=== PATIENT | female | born 1970 | race Caucasian/White ===

== ENCOUNTER 2021-04-01 18:16 | Emergency (ER) | payer OTHER ==
[~2021-04-01] VITALS: Ht 162.6 cm; Wt 108.9 kg
[~2021-04-01 18:16] MED LIST: BUPR75; METF500 PO
[2021-04-01 19:03] LABS: BASOPHILS ABSOLUTE AUTO 0.03 K/mm3 (0.00-0.23); BASOPHILS PERCENT AUTO 0 % (0-2); EOSINOPHILS ABSOLUTE AUTO 0.19 K/mm3 (0.00-0.68); EOSINOPHILS PERCENT AUTO 3 % (0-6); Hematocrit 38.5 % (33.0-51.0); Hemoglobin 13.2 g/dL (11.5-16.0); IMMATURE GRAN ABSOLUTE AUTO 0.03 K/mm3 (0.00-0.10); IMMATURE GRAN PERCENT AUTO 0 % (0-1); LYMPHOCYTES PERCENT AUTO 43 % (21-46); MONOCYTES ABSOLUTE AUTO 0.48 K/mm3 (0.16-1.47); MONOCYTES PERCENT AUTO 6 % (4-13); Mean Corpuscular HGB 30.3 pg (26.0-34.0); Mean Corpuscular HGB Conc 34.3 g/dL (31.5-36.5); Mean Corpuscular Volume 89 fL (80-100); Mean Platelet Volume 9.2 fL (9.1-12.4); NEUTROPHILS ABSOLUTE AUTO 3.62 K/mm3 (1.96-9.15); NEUTROPHILS PERCENT AUTO 47 % (41-73); Platelet Count 304 K/mm3 (150-400); RDW Coefficient Variation 13.3 % (11.7-14.2); RDW Standard Deviation 43.3 fL (35.1-46.3); Red Blood Cell Count 4.35 M/mm3 (3.80-5.20); White Blood Cell Count 7.65 K/mm3 (4.00-11.30)
[2021-04-01 19:16] LABS: Alanine Aminotransfer (ALT/SGP 40 U/L (12-78); Albumin, Blood 3.7 g/dL (3.4-5.0); Alk Phos 68 U/L (50-136); Anion Gap 7 mmol/L (6-16); Aspartate Aminotrans (AST/SGOT 22 U/L (12-37); Bilirubin, Total 0.3 mg/dL (0.1-1.0); Blood Urea Nitrogen 10 mg/dL (8-24); Bun/Creatinine Ratio 12.3 (12.0-20.0); CO2, Blood 25 mmol/L (21-32); Chloride, Blood 105 mmol/L (98-108); Creatinine, Blood 0.82 mg/dL (0.40-1.00); Globulin, Blood 3.6 g/dL (2.2-4.0); Glomerular Filtration Rate >60 (60-); Glucose, Blood 154 mg/dL (70-99); Potassium, Blood 3.7 mmol/L (3.5-5.5); Sodium, Blood 137 mmol/L (136-145); Total Protein, Blood 7.3 g/dL (6.4-8.2)
[2021-04-01] MEDS ORDERED: METF500 PO (19:21)
[2021-04-01] MEDS ORDERED: Cymbalta20 MG PO (19:21)
[2021-04-01] MEDS ORDERED: MELOXICAM5 MG PO (19:21)
== END 2021-04-01 21:25 | disposition home or self-care (01) ==
LOC: ER 18:16
PROVIDERS: Student in an Organized Health Care Education/Training Program
DX: R20.2 Paresthesia of skin (principal); E11.9 Type 2 diabetes mellitus without complications; Z87.891 Personal history of nicotine dependence; Z79.84 Long term (current) use of oral hypoglycemic drugs; Z79.899 Other long term (current) drug therapy; Z88.5 Allergy status to narcotic agent; Z88.8 Allergy status to other drugs, medicaments and biological substances; Z86.16 Personal history of COVID-19
CPT/HCPCS: 36415; 70450; 80053; 85025; 93005; 93010; 96372; 99285-25

== ENCOUNTER 2022-08-26 05:48 | Day surgery (SDC) | payer OTHER ==
[~2022-08-26] VITALS: Ht 160 cm; Wt 106.0 kg
[~2022-08-26 05:48] MED LIST changes: +BUPR150ER PO; -BUPR75; +Bactrim Ds Tab1 EACH PO; +Cymbalta20 MG PO; +LORAZEPAM0.5 MG PO; +MELOXICAM5 MG PO; +OMEP20ER PO; +OXYC5 PO; +PREG100 PO; +PROBIOTIC1 EA13 PO; +PSYLLIUM FIBER0.4 GM; +VICTOZA 2-0.6 MG/0.1 SC; +VITAMIN D310 MC4 PO; +[UNRECOGNIZED DRUG - OTHER]
[2022-08-26] MEDS ORDERED: GABA300 PO (06:35)
[2022-08-26] MEDS ORDERED: Crestor20 MG PO (06:35)
[2022-08-26] MEDS ORDERED: OMEP20ER PO (06:36)
--- NOTE | 2022-08-26 07:47 | NUR ---
Ambulatory in Day Surgery History, Chart, Medications and Allergies reviewed before start of procedure.Pre-Op teaching done. Pt verbalizes understanding. Patient confirms NPO status and agrees with scheduled surgery.
--- NOTE | 2022-08-26 19:15 | NUR ---
ADMIT NOTE PATIENT NEW ADMIT TO UNIT POST OP DAY 0 HERNIA REPAIR WITH MESH PLACEMENT AND SCAR REVISION WITH DR FARLEY. ALERT AND ORIENTED AND MILDLY GROGGY. SEVERE ABD PAIN 8/10, MANAGED WITH IV DILAUDID. POST OP VSS. TOLERATING WATER, JELLO, AND CRACKERS. REPORTS MILD NAUSEA. WELDON DC'D ON ARRIVAL PER ORDERS. CHARTED 1200 CLEAR YELLOW URINE OUTPUT. 2L O2 VIA NC. IV FLUID RUNNING. RESTING IN BED AT THIS TIME. ABD INCISIONS LAP SITES X 4 AND LOWER MIDLINE WITH DERMABOND. C/D/I. REPORT GIVEN TO LANDSCAPE AND YARDWORK LABORER RN.
--- NOTE | 2022-08-27 06:00 | NUR ---
SUMMARY PT AMBULATORY [id number] ASSIST.VOIDING WITHOUT DIFF.REPORTS PAIN CONTROLLED WITH PO PAIN MEDS.TOLERATING PO AFTER BRIEF NAUSEA.
--- NOTE | 2022-08-27 17:41 | NUR ---
BREN FULL LIQUID DIET WITHOUT NAUSEA. UP IN ROOM AND AMBULATED IN HALLWAY WITH MINIMAL ASSIST. PT REPORTS ABD BINDER HAS HELPED DECREASE ABD PAIN. PT SITTING IN RECLINER AND USING HOME COMPUTER THIS AFTERNOON. MEDICATED FOR PAIN AND REPORTS PAIN RELIEF IS ADEQUATE AND WHAT SHE WOULD EXPECT AT THIS POINT
[2022-08-27 21:39] LABS: Source, Urine Clean Catch
[2022-08-27 21:44] LABS: Appearance, Urine Hazy (Clear); Bilirubin, Urine Neg (Neg); Blood, Urine 2+ (Neg); Glucose Qualitative, Urine Neg (Neg); Ketones, Urine Neg (Neg); Leukocyte Esterase, Urine 3+ (Neg); Nitrite, Urine Pos (Neg); Protein, Urine 1+ (Neg); Specific Gravity, Urine 1.005 (1.003-1.022); Urobilinogen, Urine NORM (Normal)
[2022-08-27 22:33] LABS: Color, Urine Pale Yellow (P-Yellow)
[2022-08-27 22:35] LABS: Bacteria Many /hpf; Squamous Epithelial Cells Rare /hpf (Few); White Blood Cells, Urine 50-100 /hpf (0-5)
--- NOTE | 2022-08-28 06:37 | NUR ---
Patient independent in room, scant sang drainage from abd incision. PRN pain meds given ATC. Drinking and eating well. No acute safety concerns at this time.
--- NOTE | 2022-08-28 07:29 | NUR ---
08/28/22 0729 Apolonia Mcbride LATE ENTRY: FOLLOWING PROCEDURE, MULTIPLE SMALL SKIN TEARS EVIDENT ON LOWER ABDOMEN.
[2022-08-28] MEDS ORDERED: ACET500 PO (10:41)
[2022-08-28] MEDS ORDERED: IBUP400 PO (10:42)
[2022-08-28] MEDS ORDERED: OXYC5 PO (10:42)
[2022-08-28] MEDS ORDERED: CEPH500 PO (10:42)
--- NOTE | 2022-08-28 12:56 | NUR ---
DISCHARGE: INCISIONS WNL, PAIN MANAGED. PT A/O, VSS. REFUSED NEED FOR INSULIN THIS AFTERNOON. DC PACKET PRINTED AND PT EDUCATED. IV DC'D WNL, TIP INTACT. LEFT UNIT VIA WHEELCHAIR AT ABOUT 1145 WITH MIN CASTRO
== END 2022-08-28 12:15 | disposition home or self-care (01) ==
LOC: ORSCMMR 05:48 → ORD 07:30 → ORSCMMR 07:30 → SURS 15:50 → ORSCMMR 08-28 12:15
PROVIDERS: Surgery
PROC: 0WUF4JZ Supplement Abdominal Wall with Synthetic Substitute, Percutaneous Endoscopic Approach (ICD-10-PCS; principal; 2022-08-26 07:30)
PROC: 3E0M45Z Introduction of Adhesion Barrier into Peritoneal Cavity, Percutaneous Endoscopic Approach (ICD-10-PCS; principal; 2022-08-26 07:30)
PROC: 0HB7XZZ Excision of Abdomen Skin, External Approach (ICD-10-PCS; principal; 2022-08-26 07:30)
PROC: 8E0W4CZ Robotic Assisted Procedure of Trunk Region, Percutaneous Endoscopic Approach (ICD-10-PCS; principal; 2022-08-26 07:30)
DX: K43.0 Incisional hernia with obstruction, without gangrene (principal); L91.0 Hypertrophic scar; K21.9 Gastro-esophageal reflux disease without esophagitis; E11.9 Type 2 diabetes mellitus without complications; Z23 Encounter for immunization; Z79.899 Other long term (current) drug therapy; Z86.73 Personal history of transient ischemic attack (TIA), and cerebral infarction without residual deficits
CPT/HCPCS: 49594; 11400; S2900; 81001; 82947; 87077; 87086; 87186; 90686; 94760; A9270; C1781; J0690; J1100; J1170; J1650; J1885; J2250; J2370; J2405; J2704; J2765; J2795; J3010; J7120

== ENCOUNTER 2022-10-07 11:20 | Emergency (ER) | payer OTHER ==
[~2022-10-07] VITALS: Ht 160 cm; Wt 102.1 kg
[~2022-10-07 11:20] MED LIST changes: +ACET500 PO; +CEPH500 PO; +Crestor20 MG PO; +GABA300 PO; +IBUP400 PO
[2022-10-07 11:51] LABS: BASOPHILS ABSOLUTE AUTO 0.04 K/mm3 (0.00-0.23); BASOPHILS PERCENT AUTO 1 % (0-2); EOSINOPHILS ABSOLUTE AUTO 0.29 K/mm3 (0.00-0.68); EOSINOPHILS PERCENT AUTO 3 % (0-6); Hematocrit 38.4 % (33.0-51.0); IMMATURE GRAN ABSOLUTE AUTO 0.03 K/mm3 (0.00-0.10); IMMATURE GRAN PERCENT AUTO 0 % (0-1); LYMPHOCYTES ABSOLUTE AUTO 3.04 K/mm3 (0.84-5.20); LYMPHOCYTES PERCENT AUTO 35 % (21-46); MONOCYTES PERCENT AUTO 7 % (4-13); Mean Corpuscular HGB 29.7 pg (26.0-34.0); Mean Corpuscular HGB Conc 33.9 g/dL (31.5-36.5); Mean Corpuscular Volume 88 fL (80-100); Mean Platelet Volume 8.8 fL (9.1-12.4); NEUTROPHILS ABSOLUTE AUTO 4.79 K/mm3 (1.96-9.15); NEUTROPHILS PERCENT AUTO 55 % (41-73); Platelet Count 319 K/mm3 (150-400); Red Blood Cell Count 4.37 M/mm3 (3.80-5.20); White Blood Cell Count 8.79 K/mm3 (4.00-11.30)
[2022-10-07 12:11] LABS: Albumin, Blood 3.6 g/dL (3.4-5.0); Albumin/Globulin Ratio 0.9 (0.8-1.8); Bilirubin, Total 0.3 mg/dL (0.1-1.0); Calcium, Blood 9.3 mg/dL (8.5-10.1); Creatinine, Blood 0.69 mg/dL (0.40-1.00); Globulin, Blood 3.8 g/dL (2.2-4.0); Total Protein, Blood 7.4 g/dL (6.4-8.2)
[2022-10-07 14:18] LABS: Source, Urine Voided
[2022-10-07 14:23] LABS: Appearance, Urine Clear (Clear); Bilirubin, Urine Neg (Neg); Blood, Urine Neg (Neg); Color, Urine Yellow (P-Yellow); Glucose Qualitative, Urine Neg (Neg); Ketones, Urine Neg (Neg); Leukocyte Esterase, Urine 1+ (Neg); Nitrite, Urine Neg (Neg); Protein, Urine 1+ (Neg); Specific Gravity, Urine 1.005 (1.003-1.022); Urobilinogen, Urine NORM (Normal)
[2022-10-07 14:37] LABS: Bacteria Few /hpf; Squamous Epithelial Cells Few /hpf (Few)
[2022-10-07 15:57] LABS: International Normalized Ratio 1.03; Prothrombin Time Results 10.8 Sec (9.7-11.5)
[2022-10-08] MEDS ORDERED: Percocet 5-3251 EACH PO (22:01)
[2022-10-08] MEDS ORDERED: DOC250 PO (22:02)
== END 2022-10-07 16:30 | disposition home or self-care (01) ==
LOC: ER 11:20
PROVIDERS: Emergency Medicine; Physician Assistant
DX: K91.873 Postprocedural seroma of a digestive system organ or structure following other procedure (principal); E11.9 Type 2 diabetes mellitus without complications; Z88.5 Allergy status to narcotic agent; Z79.899 Other long term (current) drug therapy; Z79.84 Long term (current) use of oral hypoglycemic drugs; Z87.891 Personal history of nicotine dependence
CPT/HCPCS: 36415; 74177; 80053; 81001; 85025; 85610; 85730; 87077; 87086; 87186; 96374-59; 96375; 96376; 99284-25; J1170; J2405; Q9967

== ENCOUNTER 2022-10-08 12:56 | Day surgery (SDC) | payer OTHER ==
[2022-10-08] MEDS ORDERED: Percocet 5-3251 EACH PO (22:01)
[2022-10-08] MEDS ORDERED: DOC250 PO (22:02)
== END 2022-10-08 22:54 | disposition home or self-care (01) ==
LOC: CT 12:56
DX: L76.34 Postprocedural seroma of skin and subcutaneous tissue following other procedure (principal); Y83.8 Other surgical procedures as the cause of abnormal reaction of the patient, or of later complication, without mention of misadventure at the time of the procedure
CPT/HCPCS: 10030

== ENCOUNTER 2022-10-08 17:43 | Emergency (ER) | payer OTHER ==
[~2022-10-08] VITALS: Ht 162.6 cm; Wt 99.8 kg
[2022-10-08 18:55] LABS: BASOPHILS ABSOLUTE AUTO 0.03 K/mm3 (0.00-0.23); BASOPHILS PERCENT AUTO 0 % (0-2); EOSINOPHILS ABSOLUTE AUTO 0.23 K/mm3 (0.00-0.68); EOSINOPHILS PERCENT AUTO 3 % (0-6); Hematocrit 36.9 % (33.0-51.0); Hemoglobin 12.6 g/dL (11.5-16.0); IMMATURE GRAN ABSOLUTE AUTO 0.01 K/mm3 (0.00-0.10); IMMATURE GRAN PERCENT AUTO 0 % (0-1); LYMPHOCYTES ABSOLUTE AUTO 2.68 K/mm3 (0.84-5.20); LYMPHOCYTES PERCENT AUTO 37 % (21-46); MONOCYTES ABSOLUTE AUTO 0.59 K/mm3 (0.16-1.47); MONOCYTES PERCENT AUTO 8 % (4-13); Mean Corpuscular HGB 29.9 pg (26.0-34.0); Mean Corpuscular HGB Conc 34.1 g/dL (31.5-36.5); Mean Corpuscular Volume 88 fL (80-100); Mean Platelet Volume 8.7 fL (9.1-12.4); NEUTROPHILS ABSOLUTE AUTO 3.65 K/mm3 (1.96-9.15); NEUTROPHILS PERCENT AUTO 51 % (41-73); Platelet Count 312 K/mm3 (150-400); RDW Standard Deviation 41.1 fL (35.1-46.3); Red Blood Cell Count 4.21 M/mm3 (3.80-5.20); White Blood Cell Count 7.19 K/mm3 (4.00-11.30)
[2022-10-08 19:15] LABS: Albumin, Blood 3.3 g/dL (3.4-5.0); Albumin/Globulin Ratio 0.9 (0.8-1.8); Bilirubin, Total 0.2 mg/dL (0.1-1.0); Bun/Creatinine Ratio 17.8 (12.0-20.0); Calcium, Blood 9.2 mg/dL (8.5-10.1); Creatinine, Blood 0.67 mg/dL (0.40-1.00); Globulin, Blood 3.8 g/dL (2.2-4.0); Potassium, Blood 3.6 mmol/L (3.5-5.5); Total Protein, Blood 7.1 g/dL (6.4-8.2)
[2022-10-08] MEDS ORDERED: Percocet 5-3251 EACH PO (22:01)
[2022-10-08] MEDS ORDERED: DOC250 PO (22:02)
== END 2022-10-08 22:18 | disposition home or self-care (01) ==
LOC: ER 17:43
PROVIDERS: Student in an Organized Health Care Education/Training Program
DX: K91.873 Postprocedural seroma of a digestive system organ or structure following other procedure (principal); Y83.8 Other surgical procedures as the cause of abnormal reaction of the patient, or of later complication, without mention of misadventure at the time of the procedure; E11.9 Type 2 diabetes mellitus without complications; Z88.5 Allergy status to narcotic agent; Z79.899 Other long term (current) drug therapy; Z79.84 Long term (current) use of oral hypoglycemic drugs; Z87.891 Personal history of nicotine dependence
CPT/HCPCS: 36415; 74177; 80053; 83605; 83690; 85025; 86850; 86900; 86901; 99284-25; A9270; Q9967

== ENCOUNTER 2023-01-15 16:45 | Emergency (ER) | payer OTHER ==
[~2023-01-15] VITALS: Ht 162.6 cm; Wt 95.2 kg
[~2023-01-15 16:45] MED LIST changes: +DOC250 PO; +Percocet 5-3251 EACH PO
[2023-01-15 18:47] LABS: Source, Urine Clean Catch
[2023-01-15 18:50] LABS: Appearance, Urine Clear (Clear); Bilirubin, Urine Neg (Neg); Blood, Urine Neg (Neg); Glucose Qualitative, Urine Neg (Neg); Ketones, Urine Neg (Neg); Leukocyte Esterase, Urine 3+ (Neg); Nitrite, Urine Neg (Neg); Protein, Urine 1+ (Neg); Urobilinogen, Urine NORM (Normal); pH, Urine 6.5 (5.0-8.0)
[2023-01-15 19:02] LABS: Color, Urine Pale Yellow (P-Yellow)
[2023-01-15 19:04] LABS: Bacteria Many /hpf; Red Blood Cells, Urine 0-2 /hpf (0-2); Squamous Epithelial Cells Rare /hpf (Few); Transitional Epithelial Cells Rare /hpf (0-Rare)
[2023-01-15 19:53] LABS: International Normalized Ratio 1.02; Prothrombin Time Results 10.7 Sec (9.7-11.5)
[2023-01-15] MEDS ORDERED: DECADRON6 M1 PO (21:16)
[2023-01-15] MEDS ORDERED: CEPH500 PO (21:33)
[2023-01-15 21:58] VITALS: BP 109/86
== END 2023-01-15 21:56 | disposition home or self-care (01) ==
LOC: ER 16:45
PROVIDERS: Student in an Organized Health Care Education/Training Program
DX: D69.3 Immune thrombocytopenic purpura (principal); R10.9 Unspecified abdominal pain; Z88.5 Allergy status to narcotic agent; Z79.84 Long term (current) use of oral hypoglycemic drugs; Z79.899 Other long term (current) drug therapy; E11.9 Type 2 diabetes mellitus without complications; Z87.891 Personal history of nicotine dependence
CPT/HCPCS: 74177; 81001; 85610; 86308; 86850; 86900; 86901; 87077; 87086; 87186; 99284-25; A9270; J1100; J7030; Q9967

== ENCOUNTER 2024-08-17 17:03 | Emergency (ER) | payer OTHER ==
[~2024-08-17] VITALS: Ht 165.1 cm; Wt 88.9 kg
[~2024-08-17 17:03] MED LIST changes: +DECADRON6 M1 PO
[2024-08-17] MEDS ORDERED: Pantoprazole Sodium 40 MG Injection IV ONE ×2 (18:45→21:55)
[2024-08-17] MEDS ORDERED: NS 500 ML IV SCH (18:45)
[2024-08-17] MEDS ORDERED: Ondansetron HCl 2 MG / ML 2ML Vial IV ONE ×2 (18:45→21:55)
[2024-08-17 20:31] LABS: BASOPHILS ABSOLUTE AUTO 0.05 K/mm3 (0.00-0.23); BASOPHILS PERCENT AUTO 1 % (0-2); EOSINOPHILS PERCENT AUTO 1 % (0-6); Hematocrit 41.9 % (33.0-51.0); Hemoglobin 14.6 g/dL (11.5-16.0); IMMATURE GRAN ABSOLUTE AUTO 0.02 K/mm3 (0.00-0.10); IMMATURE GRAN PERCENT AUTO 0 % (0-1); LYMPHOCYTES ABSOLUTE AUTO 2.92 K/mm3 (0.84-5.20); LYMPHOCYTES PERCENT AUTO 35 % (21-46); MONOCYTES ABSOLUTE AUTO 0.49 K/mm3 (0.16-1.47); MONOCYTES PERCENT AUTO 6 % (4-13); Mean Corpuscular HGB 30.9 pg (26.0-34.0); Mean Corpuscular HGB Conc 34.8 g/dL (31.5-36.5); Mean Corpuscular Volume 89 fL (80-100); NEUTROPHILS ABSOLUTE AUTO 4.76 K/mm3 (1.96-9.15); NEUTROPHILS PERCENT AUTO 57 % (41-73); Platelet Count 254 K/mm3 (150-400); RDW Coefficient Variation 12.5 % (11.7-14.2); RDW Standard Deviation 40.7 fL (35.1-46.3); Red Blood Cell Count 4.73 M/mm3 (3.80-5.20); White Blood Cell Count 8.34 K/mm3 (4.00-11.30)
[2024-08-17 21:09] LABS: Albumin, Blood 3.8 g/dL (3.4-5.0); Albumin/Globulin Ratio 1.1 (0.8-1.8); Bilirubin, Total 0.5 mg/dL (0.1-1.0); Bun/Creatinine Ratio 13.4 (12.0-20.0); Calcium, Blood 10.2 mg/dL (8.5-10.1); Creatinine, Blood 0.67 mg/dL (0.40-1.00); Globulin, Blood 3.6 g/dL (2.2-4.0); Magnesium, Blood 2.2 mg/dL (1.6-2.4); Potassium, Blood 3.8 mmol/L (3.5-5.5); Total Protein, Blood 7.4 g/dL (6.4-8.2)
[2024-08-17] MEDS ORDERED: Ketorolac Tromethamine 30mg Vial IV ONE (22:50)
[2024-08-17 23:00] VITALS: BP 145/84
[2024-08-17] MEDS ORDERED: FAMO20 PO (23:24)
[2024-08-17] MEDS ORDERED: ALMACONE SUSPE355 ML PO (23:24)
[2024-08-17] MEDS ORDERED: ONDA4ODT MM (23:24)
== END 2024-08-17 23:46 | disposition home or self-care (01) ==
LOC: ER 17:03
PROVIDERS: Student in an Organized Health Care Education/Training Program
DX: K92.1 Melena (principal); R10.13 Epigastric pain; Z87.891 Personal history of nicotine dependence; K21.9 Gastro-esophageal reflux disease without esophagitis; E11.9 Type 2 diabetes mellitus without complications; Z79.899 Other long term (current) drug therapy; Z79.84 Long term (current) use of oral hypoglycemic drugs; Z88.5 Allergy status to narcotic agent
CPT/HCPCS: 74177; 76705; 80053; 83690; 83735; 85025; 86850; 86900; 86901; 93005; 93010; 96361; 96374-59; 96375; 99285-25; J1885; J2405; J2470; J7030; Q9967